=== PATIENT | female | born 1940 | race Caucasian/White ===

== ENCOUNTER 2016-10-05 12:59 | Outpatient (CLI) | payer OTHER ==
[2014-06-05 22:19] VITALS: BP 136/78
== END 2016-10-05 13:00 ==
LOC: LABRHC 12:59
PROVIDERS: ATTEND Physician Assistant
DX: R30.0 Dysuria (principal)
CPT/HCPCS: 87086; 87186

== ENCOUNTER 2017-09-22 09:25 | Outpatient (CLI) | payer OTHER ==
[2014-06-05 22:19] VITALS: BP 136/78
[2017-09-22 09:44] LABS: BASOPHILS % 0.3 (0.0-1.5); EOSINOPHILS % 0.9 % (0.0-6.8); MEAN CORPUSCULAR HEMOGLOBIN 29.8 pg (28.0-34.0); MEAN CORPUSCULAR VOLUME 98.4 fl (80.0-100.0); MONOCYTES % 4.6 % (0.0-11.0)
--- NOTE | 2017-09-22 17:57 | Diagnostic Imaging Report ---
LEONIDES FIORE [facility] [address] [facility] [address] [place] [address]. [id number] Report Submission Date: Sep 22, 2017 9:54:23 AM CDT Patient Study Name: TOÑA SCRUGGS Date: Sep 22, 2017 9:37:21 AM CDT Modality Type: DX Gender: F Description: CHEST : 44 Institution: [facility] Physician: LEONIDES FIORE Examination: PA and lateral chest. History: Evaluate lung quintero. CXR, COUGH, SOA X1 WEEK, SMOKER (Hx) Comparison exam: None provided. Findings: PA lateral chest demonstrate a prominent cardiac and mediastinal silhouette. Vascular calcifications involving the aortic arch. Hilar vascular fullness. Diffuse interstitial prominence. Blunting of the left costophrenic margin. Left cardiac pacemaker. Articular degenerative changes. Impression: Cardiomegaly. Prominent hilar vasculature and interstitial prominence suggesting increased volume status. Probable left base effusion. Electronically signed on Sep 22, 2017 9:54:23 AM CDT by: Keith MCCLELLAND
== END 2017-09-22 09:35 ==
LOC: LAB 09:25
PROVIDERS: ATTEND Physician Assistant
DX: R05 Cough (principal)
CPT/HCPCS: 36415; 71046; 85025

== ENCOUNTER 2017-12-20 15:28 | Emergency (ER) | payer OTHER ==
[2017-12-20 15:51] LABS: BASOPHILS % 0.3 (0.0-1.5); EOSINOPHILS % 2.2 % (0.0-6.8); MEAN CORPUSCULAR HEMOGLOBIN 26.5 pg (28.0-34.0); MEAN CORPUSCULAR VOLUME 87.1 fl (80.0-100.0); MONOCYTES % 5.8 % (0.0-11.0); NEUTROPHILS # 7.3 # k/uL (1.4-7.7)
[2017-12-20 16:08] LABS: eGFR (African) > 60; eGFR (Non-African) > 60
[2017-12-20] MEDS: FUROSEMIDE 40 MG/4 ML VIAL IVP ONE (17:00)
[2017-12-20] MEDS: POTASSIUM CHLORIDE 20 MEQ TABLET.ER PO ONE (17:00)
--- NOTE | 2017-12-20 17:00 | ED Physician Documentation ---
Dyspnea - HISTORIAN Historian: patient - HPI Stated Complaint: Cough x 2 Weeks Chief Complaint: Dyspnea Onset: days ago (for 2 weeks; worse) Duration: worse Severity: severe Exacerbated By: exertion, laying flat, coughing Further Comments: yes (77 year old male patient presents with complaint of cough for the past 2 weeks; worsening, has not been able to see her PCP. C/O yellow drainage from nose. Denies CP. States she has a follow up appointment to see her photo finisher on Monday and an ECHO scheduled. Patient denies any swelling in ankles and legs.) - ROS CONST: no problems EYES/ENT: nasal drainage, nasal congestion GI/: none NEURO/PSYCH: denies: headache MS/SKIN/LYMPH: none - PAST HX Lung Disease: other (emphysema) Cardiac Disease: A-Fib PE Risk Factors: hypertension Surgeries/Procedures: other (PPM, ablation - 6 weeks ago) Other History: other (seasonal allergies, GERD, hypothyroidism) Allergies/Adverse Reactions: Allergies Allergy/AdvReac Type Severity Reaction Status Date / Time iodine [Iodine] Allergy Intermediate Verified 03/09/13 10:29 Penicillins Allergy Unknown Verified 03/09/13 10:29 Home Medications: Ambulatory Orders Medication Instructions Recorded Loratadine [Claritin] 10 mg PO DAILY 07/12/12 Furosemide [Lasix] 40 mg PO BID 12/20/17 Lisinopril [Lisinopril] 10 mg PO BID 12/20/17 - SOCIAL HX Smoking History: non-smoker - FAMILY HX Family History: denies: none - VITAL SIGNS Vital Signs: Vital Signs Temp Pulse Resp BP Pulse Ox 98.2 F 80 26 H 104/68 96 12/20/17 15:30 12/20/17 16:41 12/20/17 15:30 12/20/17 15:30 12/20/17 16:42 - REVIEWED ASSESSMENTS Nursing Assessment Reviewed: Yes Vitals Reviewed: Yes Progress - Progress Progress: Patient and son requesting transfer to [facility] to patient's photo finisher Dr Mcadams. Reviewed medication list. Will start with lasix 40mg IV now. 1705 Call to [facility]. Case discussed with Dr Do - patient accepted for transfer. - EKG/XRAY/CT EKG: rhythm (V Paced; with PVC) XRAY: chest (cardiomegaly, vascular congestion) ED Results Lab/Radiology - Lab Results Lab Results: Lab Results 12/20/17 12/20/17 12/20/17 15:45 15:45 15:45 WBC RBC Hgb Hct MCV MCH MCHC RDW Plt Count Neut % (Auto) Lymph % (Auto) [place] % (Auto) Eos % (Auto) Baso % (Auto) Neut # (Auto) Lymph # (Auto) [place] # (Auto) Eos # (Auto) Baso # (Auto) Reactive Lymphs % Reactive Lymphs # Sodium 131 mmol/L L mmol/L (136-145) Potassium 4.2 mmol/L mmol/L (3.5-5.1) Chloride 96 mmol/L L mmol/L (98-107) Carbon Dioxide 25 mmol/L mmol/L (22-30) BUN 18 mg/dL H mg/dL (7-17) Creatinine 0.90 mg/dL mg/dL (0.52-1.04) Estimated Creat Clear 68 Est GFR ( Amer) > 60 (60 - ) Est GFR (Non-Af Amer) > 60 (60 - ) Glucose 115 mg/dL H mg/dL (74-106) Calcium 8.9 mg/dL mg/dL (8.4-10.2) Total Bilirubin 0.9 mg/dL mg/dL (0.2-1.3) AST 18 U/L U/L (15-46) ALT 28 U/L U/L (13-69) Alkaline Phosphatase 111 U/L U/L (38-126) NT-Pro-B Natriuret Pep 42974.1 pg/mL H pg/mL (15.0-450.0) Total Protein 6.4 g/dL g/dL (6.3-8.2) Albumin 3.5 g/dL g/dL (3.5-5.0) Ethyl Alcohol < 10.0 mg/dL mg/dL (0.0-10.0) 12/20/17 15:45 WBC 8.60 K/ul K/ul (4.00-12.00) RBC 3.98 M/ul M/ul (3.90-5.20) Hgb 10.5 g/dL L g/dL (12.0-16.0) Hct 34.6 % % (34.5-46.5) MCV 87.1 fl fl (80.0-100.0) MCH 26.5 pg L pg (28.0-34.0) MCHC 30.5 g/dL g/dL (30.0-36.0) RDW 16.3 % H % (11.3-14.3) Plt Count 281 K/mm3 K/mm3 (130-400) Neut % (Auto) 85.3 % H % (39.0-79.0) Lymph % (Auto) 5.4 % L % (16.0-50.0) [place] % (Auto) 5.8 % % (0.0-11.0) Eos % (Auto) 2.2 % % (0.0-6.8) Baso % (Auto) 0.3 (0.0-1.5) Neut # (Auto) 7.3 # k/uL # k/uL (1.4-7.7) Lymph # (Auto) 0.5 # k/uL L # k/uL (0.6-4.0) [place] # (Auto) 0.5 # k/uL # k/uL (0.0-0.9) Eos # (Auto) 0.2 # k/uL # k/uL (0.0-0.6) Baso # (Auto) 0.0 # k/uL # k/uL (0.0-0.5) Reactive Lymphs % 1.0 % % (0.0-5.0) Reactive Lymphs # 0.1 # k/uL # k/uL (0.0-0.8) Sodium Potassium Chloride Carbon Dioxide BUN Creatinine Estimated Creat Clear Est GFR ( Amer) Est GFR (Non-Af Amer) Glucose Calcium Total Bilirubin AST ALT Alkaline Phosphatase NT-Pro-B Natriuret Pep Total Protein Albumin Ethyl Alcohol - Radiology Radiology Impressions: Chest, PA and lateral History: Cough Findings: Left subclavian transvenous pacemaker is present. The lungs are hyperinflated, consistent with emphysema. There is no pneumothorax pleural effusion. The heart is enlarged. Pulmonary vascularity is normal. Prior examinations are not available for comparison at the time of interpretation. Impression: Cardiomegaly. Electronically signed on Dec 20, 2017 4:22:15 PM CDT by: Olivier Lan - Orders Orders: ED Orders Category Date Time Status Continuous EKG monitoring Q30M Care 12/20/17 16:41 Active Continuous Pulse Oximetry Q30M Care 12/20/17 16:41 Active Continuous Pulse Oximetry Q30M Care 12/20/17 16:42 Active CHEST 2VIEW [RAD] Stat Exams 12/20/17 15:39 Taken ALCOHOL MEDICAL USE ONLY Stat Lab 12/20/17 15:45 Completed BNP [NT-proBNP] Stat Lab 12/20/17 15:45 Completed CBC/PLATELET/DIFF Stat Lab 12/20/17 15:45 Completed CMP Stat Lab 12/20/17 15:45 Completed TROPONIN I (cTnI) Stat Lab 12/20/17 15:45 Received Furosemide [Lasix] Med 12/20/17 16:44 Discontinued 40 mg IVP NOW ONE Potassium Chloride [Klor-Con M20] Med 12/20/17 16:56 Discontinued 20 meq PO NOW ONE EKG WITH COMPARISON Stat Ther 12/20/17 16:41 Ordered Dyspnea Physical Exam - EXAM General Appearance: moderate distress EENT: eye inspection normal, ENT inspection normal, pharynx normal, no signs of dehydration, TRISTEN, no nystagmus, TM's nml Respiratory: no resp. distress, no pain on inspiration, speaks full sentences, decreased air movement (bases), other (frequent productive cough; dyspnea with exerction) CVS: no murmur, no gallop, no friction rub, pulses full, pulses equal, irregularly irreg. rhythm Abdomen: non-tender, no organomegaly, no distention, no ascites Skin: no rash, pallor, warm, nml palp., dry Extremities: non-tender, normal range of motion, no evidence of injury, no edema. No: edema Neuro/Psych: oriented x3, CN's nml as tested, motor nml, sensation nml, mood/ affect nml Discharge Clincal Impression: CHF (congestive heart failure) Qualifiers: Heart failure type: combined systolic and diastolic Heart failure chronicity: acute Qualified Code(s): I50.41 - Acute combined systolic (congestive) and diastolic (congestive) heart failure Dyspnea Qualifiers: Dyspnea type: dyspnea on exertion Qualified Code(s): R06.09 - Other forms of dyspnea Referrals: Primary Doctor,No [Primary Care Provider] - 2 Days Condition: Fair Disposition: 02 XFER SHT-TRM HOSP Decision to Admit: NO Decision Time: 17:18
[2017-12-20 18:00] VITALS: BP 104/73
--- NOTE | 2017-12-21 06:07 | Diagnostic Imaging Report ---
ROLANDO GARNER (BULK GAS SPECIALIST) - ER [facility] [address] [facility].[address] [address] Report Submission Date: Dec 20, 2017 4:22:15 PM CDT Patient Study Name: TOÑA SCRUGGS Date: Dec 20, 2017 3:57:36 PM CDT Modality Type: DX Gender: F Description: CHEST : 44 Institution: [facility] Physician: ROLANDO GARNER (BULK GAS SPECIALIST) - ER Chest, PA and lateral History: Cough Findings: Left subclavian transvenous pacemaker is present. The lungs are hyperinflated, consistent with emphysema. There is no pneumothorax pleural effusion. The heart is enlarged. Pulmonary vascularity is normal. Prior examinations are not available for comparison at the time of interpretation. Impression: Cardiomegaly. Electronically signed on Dec 20, 2017 4:22:15 PM CDT by: Olivier MCCLELLAND
== END 2017-12-20 17:58 | disposition short-term general hospital (02) ==
LOC: ED 15:28
DX: I50.41 Acute combined systolic (congestive) and diastolic (congestive) heart failure (principal); R06.09 Other forms of dyspnea
CPT/HCPCS: 71046; 80053; 80320; 83880; 84484; 85025; 93005; A9270; J1940; 96374; G0480; S1016

== ENCOUNTER 2018-01-18 14:56 | Outpatient (CLI) | payer OTHER ==
[2018-01-18 15:36] LABS: eGFR (African) > 60; eGFR (Non-African) > 60
== END 2018-01-18 14:58 ==
LOC: LAB 14:56
PROVIDERS: ATTEND Family Medicine
DX: I48.1 Persistent atrial fibrillation (principal); Z79.899 Other long term (current) drug therapy; I50.42 Chronic combined systolic (congestive) and diastolic (congestive) heart failure
CPT/HCPCS: 36415; 80048; 85610

== ENCOUNTER 2018-04-18 12:09 | Outpatient (CLI) | payer OTHER ==
--- NOTE | 2018-04-19 08:47 | Diagnostic Imaging Report ---
RINA MIRANDA [facility] [address] [facility] [address] [address] Report Submission Date: Apr 18, 2018 1:55:05 PM CDT Patient Study Name: TOÑA SCRUGGS Date: Apr 18, 2018 12:10:48 PM CDT Modality Type: DX Gender: F Description: CHEST : 44 Institution: [facility] Physician: RINA MIRANDA Bilateral ribs History: Rib pain for 1 week after running into a wall A total of 6 images of the bilateral ribs were obtained. In general, the radiographs are underpenetrated. No rib fractures are evident. A triple lead pacing device is present. No pneumothorax or pleural effusion is noted. Impression: All of the radiographs are underpenetrated. No rib fracture is seen. No pneumothorax or pleural effusion is noted. Electronically signed on Apr 18, 2018 1:55:05 PM CDT by: Merry MCCLELLAND
== END 2018-04-18 12:11 ==
LOC: RAD 12:09
PROVIDERS: ATTEND Family Medicine
DX: S29.8XXA Other specified injuries of thorax, initial encounter (principal); W19.XXXA Unspecified fall, initial encounter; Y92.9 Unspecified place or not applicable; Y93.9 Activity, unspecified; Y99.9 Unspecified external cause status
CPT/HCPCS: 71110

== ENCOUNTER 2019-02-04 11:28 | Outpatient (CLI) | payer OTHER ==
--- NOTE | 2019-02-04 12:21 | Diagnostic Imaging Report ---
RINA MIRANDA [facility] [address] [facility] [address] [address] Report Submission Date: Feb 04, 2019 12:12:38 PM CDT Patient Study Name: TOÑA SCRUGGS Date: Feb 04, 2019 11:35:25 AM CDT Modality Type: DX Gender: F Description: T SPINE 3 VIEWS : 44 Institution: [facility] Physician: RINA MIRANDA Thoracic spine History: Back pain AP, lateral and swimmer's views of the thoracic spine were which demonstrate severe osteoporosis. There is a compression deformity of the T7 vertebral body with a 30-40% loss of vertebral body height. Otherwise, vertebral body height is maintained. There is multilevel [id number] disc space narrowing and there is moderate kyphosis of the upper to midthoracic spine. Impression: Moderate kyphosis of the upper to mid thoracic spine. Age-indeterminate T7 compression deformity within estimated 30-40% loss of vertebral body height. Depending upon the clinical scenario, consider MRI. Electronically signed on Feb 04, 2019 12:12:38 PM CDT by: Merry MCCLELLAND
--- NOTE | 2019-02-04 12:22 | Diagnostic Imaging Report ---
RINA MIRANDA [facility] [address] [facility] [address] [address] Report Submission Date: Feb 04, 2019 12:07:25 PM CDT Patient Study Name: TOÑA SCRUGGS Date: Feb 04, 2019 11:35:25 AM CDT Modality Type: DX Gender: F Description: L SPINE 2 OR 3 VIEWS : 44 Institution: [facility] Physician: RINA MIRANDA Lumbar spine History: Back pain for a day AP and lateral projections of the lumbar spine were obtained which demonstrates severe osteoporosis. There is multilevel facet arthropathy without spondylolisthesis. There is mild superior endplate compression at L5 with less than 10% loss of vertebral body height. There is mild superior and inferior endplate compression at L1 with an overall 15% loss of vertebral body height. These findings are probably chronic. Intervertebral disc space height is maintained. Aortoiliac atherosclerosis is present. Impression: Mild superior endplate compression at L5 and mild superior and inferior endplate compression at L1. These findings are probably chronic. If there is concern for acute fracture, in the setting of severe osteoporosis, consider MRI. Multilevel facet arthropathy. Aortoiliac atherosclerosis. Slight rightward curvature. Electronically signed on Feb 04, 2019 12:07:25 PM CDT by: Merry MCCLELLAND
== END 2019-02-04 11:30 ==
LOC: RAD 11:28
PROVIDERS: ATTEND Family Medicine
DX: L29.9 Pruritus, unspecified (principal); R11.0 Nausea
CPT/HCPCS: 72072; 72100